=== PATIENT | male | born 1975 | race African-American/Black ===

== ENCOUNTER 2017-04-16 08:23 | Outpatient (CLI) | payer BC | END 2017-04-16 10:00 | disposition home or self-care (01) | LOC: US 08:23 | DX: E05.90 Thyrotoxicosis, unspecified without thyrotoxic crisis or storm (principal) ==

== ENCOUNTER 2017-07-01 08:11 | Outpatient (CLI) | payer BC | END 2017-07-01 19:19 | disposition home or self-care (01) | LOC: NM 08:11 | DX: E05.00 Thyrotoxicosis with diffuse goiter without thyrotoxic crisis or storm (principal) | CPT/HCPCS: A9516 ==

== ENCOUNTER 2020-12-18 16:03 | Outpatient (CLI) | payer BC, OTHER | END 2020-12-18 22:12 | disposition home or self-care (01) | LOC: INF 16:03 | PROVIDERS: ATTEND Internal Medicine | DX: Z23 Encounter for immunization (principal) | CPT/HCPCS: 96372 ==

== ENCOUNTER 2021-01-09 15:39 | Outpatient (CLI) | payer BC, OTHER | END 2021-01-09 22:04 | disposition home or self-care (01) | LOC: INF | PROVIDERS: ATTEND Internal Medicine | DX: Z23 Encounter for immunization (principal) | CPT/HCPCS: 96372 ==